=== PATIENT | male | born 1990 | race Caucasian/White ===

== ENCOUNTER 2023-03-12 18:15 | Emergency (ER) | payer BC, SELFPAY | END 2023-03-12 21:15 | disposition home or self-care (01) | LOC: CSHERS 18:15 | DX: S92.102A Unspecified fracture of left talus, initial encounter for closed fracture (principal); F17.200 Nicotine dependence, unspecified, uncomplicated; W11.XXXA Fall on and from ladder, initial encounter; Y99.0 Civilian activity done for income or pay | CPT/HCPCS: 29515 ==